=== PATIENT | female | born 1940 | race Two or more races ===

== ENCOUNTER 2016-12-28 20:23 | Emergency (ER) | payer MEDICARE, OTHER ==
[~2016-12-28] VITALS: Ht 157.5 cm; Wt 62.6 kg
[2016-12-28] MEDS ORDERED: GLIPIZIDE5 MG ORAL (20:59)
[2016-12-28] MEDS ORDERED: LEVOTHYROXINE25 MCG ORAL (20:59)
[2016-12-28] MEDS ORDERED: ASPIR 8181 MG ORAL (20:59)
[2016-12-28] MEDS ORDERED: ATORVASTATIN CA10 MG ORAL (20:59)
[2016-12-28] MEDS ORDERED: METFORMIN HCL500 M1 ORAL (20:59)
[2016-12-28] MEDS ORDERED: ZITHROMAX250 MG ORAL (21:15)
[2016-12-28 21:26] VITALS: BP 158/72
--- NOTE | 2016-12-29 07:29 | Emergency Room Report ---
History of Present Illness General Chief Complaint: Earache Source: Patient Present Illness HPI Patient [id number] female presented after increased left ear day. Patient was noted to have increased drainage from left ear. Patient appears been having some pain to the area. She denied recent qtip use. She denied having any fever. She reported having some bloody drainage. She denied any recent antibiotic use. She noticed some decreased hearing left ear. Allergies: Coded Allergies: PENICILLINS (Verified Allergy, Unknown, 12/28/16) Patient History Past Medical History: see triage record Last Menstrual Period: n/a Reviewed Nursing Documentation: PMH: Agreed, PSxH: Agreed Nursing Documentation-PM Past Medical History: No History, Except For Hx Hypertension: Yes - cholestorol, thyroid, arthritis Hx Diabetes: Yes Review of Systems All Other Systems: negative except mentioned in HPI Physical Exam Vital Signs Date Time Temp Pulse Resp B/P Pulse Ox O2 Delivery O2 Flow Rate FiO2 12/28/16 20:52 97.9 80 16 158/72 97 Room Air General Appearance: well appearing, no apparent distress, alert, GCS 15 Head: normocephalic, atraumatic ENT: normal voice, other - small amount of purulent/ bloody fluid to left ear Neck: full range of motion, supple Respiratory: no respiratory distress, speaking full sentences Cardiovascular #1: normal peripheral pulses, regular rate, rhythm, no edema Gastrointestinal: normal inspection, normal bowel sounds, non tender Musculoskeletal: normal inspection, no calf tenderness Neurologic: normal inspection, alert, oriented x3, normal gait Psychiatric: mood/affect normal Skin: no rash Medical Decision Making Diagnostic Impression: Primary Impression: Otitis media, acute with perforation of eardrum ER Course Patient presented for ear pain. Differential diagnosis included was not limited to otitis media, malignant otitis externa, foreign body, cellulitis, mastoiditis, carotid dissection, myocardial infarction among others. Patient noted have evidence of otitis media with perforation. The patient was given prescription for azithromycin do to to the patient's penicillin allergy. The patient is advised to follow up with primary care doctor in 1-2 days. Patient is advised to return if any worsening condition or if any changes in status that are concerning. Last Vital Signs Date Time Temp Pulse Resp B/P Pulse Ox O2 Delivery O2 Flow Rate FiO2 12/28/16 21:26 97.9 16 158/72 97 Room Air 12/28/16 20:52 80 Status: improved Disposition: HOME, SELF-CARE Condition: Stable Scripts Azithromycin* (ZITHROMAX*) 250 Mg Tablet 250 MG ORAL DAILY, #6 TAB 0 Refills Take two tables once daily for 1 day, then one tablet once daily for 4 days. Prov: Mychal Vega 12/28/16 Referrals: [facility] (PCP) Patient Instructions: Otitis Media, Adult, [id number], Eardrum Perforation, [id number] Mychal Vega December 29, 2016 07:29
== END 2016-12-28 21:30 | disposition home or self-care (01) ==
LOC: EMR 21:30
DX: H66.92 Otitis media, unspecified, left ear (principal); E11.9 Type 2 diabetes mellitus without complications; I10 Essential (primary) hypertension; Z88.0 Allergy status to penicillin
CPT/HCPCS: 99283